=== PATIENT | male | born 1950 | race Two or more races ===

== ENCOUNTER 2022-04-10 10:17 | Emergency (ER) | payer OTHER ==
[~2022-04-10] VITALS: Ht 182.9 cm; Wt 102.1 kg
[~2022-04-10 10:17] MED LIST: HYZAAR 100-251 UDTAB PO; PROVENTYL
[2022-04-10] MEDS ORDERED: NORVASC5 MG PO (10:25)
[2022-04-10] MEDS ORDERED: MEDROLPACK PO (12:11)
== END 2022-04-10 12:15 | disposition home or self-care (01) ==
LOC: ER 10:17
DX: R21 Rash and other nonspecific skin eruption (principal); Z20.822 Contact with and (suspected) exposure to COVID-19; Z91.041 Radiographic dye allergy status; R42 Dizziness and giddiness; I10 Essential (primary) hypertension

== ENCOUNTER 2024-08-10 06:05 | Emergency (ER) | payer OTHER ==
[~2024-08-10] VITALS: Ht 177.8 cm; Wt 88.9 kg
[~2024-08-10 06:05] MED LIST changes: +MEDROLPACK PO; +NORVASC5 MG PO
[2024-08-10] MEDS ORDERED: CEFTRIAXONE SODIUM 1,000 MG VIAL IM ONE (09:15)
== END 2024-08-10 10:24 | disposition home or self-care (01) ==
LOC: ER 06:07
DX: R53.81 Other malaise (principal); J06.9 Acute upper respiratory infection, unspecified; I10 Essential (primary) hypertension; Z91.041 Radiographic dye allergy status

== ENCOUNTER 2024-09-04 10:00 | Emergency (ER) | payer OTHER ==
[~2024-09-04] VITALS: Ht 182.9 cm; Wt 99.8 kg
[2024-09-04] MEDS ORDERED: METHYLPREDNISOLONE SOD SUCC 40 MG VIAL IM ONE (11:30)
[2024-09-04] MEDS ORDERED: FAMOtidine 10 MG/ML (4ML VIAL) IV PUSH ONE (11:30)
[2024-09-04] MEDS ORDERED: KETOROLAC TROMETHAMINE 60 MG VIAL IM ONE ×2 (11:30→12:45)
[2024-09-04] MEDS ORDERED: DIPHENHYDRAMINE HCL 50 MG/ML VIAL 1ML IM ONE (11:30)
[2024-09-04] MEDS ORDERED: CEFTRIAXONE SODIUM 2,000 MG VIAL IM ONE (11:30)
[2024-09-04] MEDS ORDERED: CEFTRIAXONE SODIUM 1,000 MG VIAL ONE (12:45)
[2024-09-04] MEDS ORDERED: METHYLPREDNISOLONE SOD SUCC 40 MG VIAL ONE (12:45)
[2024-09-04] MEDS ORDERED: DIPHENHYDRAMINE HCL 50 MG/ML VIAL 1ML ONE (12:45)
[2024-09-04 13:33] LABS: HEMATOCRIT 41.9 % (39.0-48.0); HEMOGLOBIN 14.5 g/dL (13-16.00); MEAN CELL VOLUME 88.2 fL (80.0-100.00); MEAN CORPUSCULAR HEMOGLOBIN 30.4 pg (27.00-32.0); MEAN CORPUSCULAR HGB CONC 34.5 g/dl (32.0-36.0); PLATELET COUNT 144 K/uL (150-450); RED BLOOD COUNT 4.75 M/uL (4.00-6.00); RED CELL DISTRIBUTION WIDTH 13.9 % (11.5-14.5)
[2024-09-04 14:12] LABS: ALBUMIN 3.7 gm/dL (3.4-5.0); BILIRUBIN TOTAL 0.88 mg/dL (0.3-1.2); CREATININE SERUM 0.96 mg/dL (0.70-1.30); GFR 76.57; GLOBULINA 4.1 G/DL (2.4-3.5); POTASSIUM 3.41 mEq/L (3.5-5.1); TOTAL PROTEIN 7.8 gm/dL (6.4-8.2)
[2024-09-04] MEDS ORDERED: DIPHENHYDRAMINE HCL 12.5 MG/5 ML BLIST.PACK PO ONE (15:09)
== END 2024-09-04 17:02 | disposition home or self-care (01) ==
LOC: ER 10:02
PROVIDERS: General Practice
DX: H93.8X2 Other specified disorders of left ear (principal); I10 Essential (primary) hypertension; Z88.8 Allergy status to other drugs, medicaments and biological substances; Z88.6 Allergy status to analgesic agent

== ENCOUNTER 2024-09-13 15:09 | Emergency (ER) | payer OTHER ==
[~2024-09-13] VITALS: Ht 182.9 cm; Wt 99.8 kg
[2024-09-13] MEDS ORDERED: CEFTRIAXONE SODIUM 1,000 MG VIAL IM STA (17:32)
[2024-09-13] MEDS ORDERED: KETOROLAC TROMETHAMINE 30 MG VIAL IM STA (17:33)
[2024-09-13] MEDS ORDERED: CEFTRIAXONE SODIUM 1,000 MG VIAL ONE (17:37)
[2024-09-13] MEDS ORDERED: KETOROLAC TROMETHAMINE 30 MG VIAL ONE (17:37)
== END 2024-09-13 17:51 | disposition home or self-care (01) ==
LOC: ER 15:09
DX: H60.8X2 Other otitis externa, left ear (principal); Z88.8 Allergy status to other drugs, medicaments and biological substances; I10 Essential (primary) hypertension

== ENCOUNTER → 2024-10-08 | Emergency (ER) | payer OTHER ==
[~2024-10-08] VITALS: Ht 177.8 cm; Wt 83.9 kg
[~2024-10-08] MED LIST changes: +ZITHROMAX500 MG PO
[2024-10-08 12:50] LABS: HEMATOCRIT 41.4 % (39.0-48.0); MEAN CELL VOLUME 89.1 fL (80.0-100.00); MEAN CORPUSCULAR HGB CONC 33.7 g/dl (32.0-36.0); PLATELET COUNT 174 K/uL (150-450); RED BLOOD COUNT 4.65 M/uL (4.00-6.00); RED CELL DISTRIBUTION WIDTH 13.9 % (11.5-14.5)
== END | disposition home or self-care (01) ==
LOC: ER 10:11
PROVIDERS: Emergency Medicine
DX: J06.9 Acute upper respiratory infection, unspecified (principal); Z91.041 Radiographic dye allergy status; H60.90 Unspecified otitis externa, unspecified ear; Z20.822 Contact with and (suspected) exposure to COVID-19